=== PATIENT | male | born 1985 | race Two or more races ===

== ENCOUNTER 2016-11-01 17:18 | Emergency (ER) | payer SELFPAY ==
[~2016-11-01] VITALS: Ht 167.6 cm; Wt 104.3 kg
[2016-11-01 17:25] VITALS: BP 153/81
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
[2016-11-01] MEDS ORDERED: CYCLOBENZAPRINE 10 MG TABLET. PO ONE (18:00)
[2016-11-01] MEDS ORDERED: IBUPROFEN 800 MG TABLET. PO ONE (18:00)
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
[2016-11-01] MEDS ORDERED: CYCL10TA2 PO (18:24)
== END 2016-11-01 18:34 | disposition home or self-care (01) ==
LOC: ER 17:18
DX: S16.1XXA Strain of muscle, fascia and tendon at neck level, initial encounter (principal); V89.2XXA Person injured in unspecified motor-vehicle accident, traffic, initial encounter; Y92.413 State road as the place of occurrence of the external cause; Y93.89 Activity, other specified; Y99.8 Other external cause status
CPT/HCPCS: 72125; 99284-25